=== PATIENT | female | born 1950 | race American Indian/Alaskan Native ===

== ENCOUNTER 2017-10-09 15:22 | Outpatient (REF) | payer BC, MEDICARE, SELFPAY ==
[2017-10-09 19:34] LABS: Cholesterol 170 mg/dL (50-200); HDL Cholesterol 53 mg/dL (40-60); LDL CHOLESTEROL 96 mg/dL (<100); TSH 0.85 uIU/mL (0.358-3.74); Triglyceride 102 mg/dL (30-150); Vitamin B12 796 pg/mL (193-986)
== END 2017-10-09 15:23 ==
LOC: NCHCN 15:22
PROVIDERS: PCP Internal Medicine; Visit Provider Nurse Practitioner Family
DX: E03.9 Hypothyroidism, unspecified (principal); G31.84 Mild cognitive impairment of uncertain or unknown etiology
CPT/HCPCS: 80061; 83721; 82607; 84443

== ENCOUNTER 2018-11-07 18:11 | Outpatient (REF) | payer BC, MEDICARE, SELFPAY ==
[2018-11-07 20:34] LABS: HCT 40.6 % (36.0-46.0); Mean Corpuscular Hemoglobin 29.3 pg (27.0-33.0); Mean Corpuscular Volume 91.6 fL (80-95); Mean Platelet Volume 11.3 fL (8.0-11.0); Platelet Count 202 x1000/uL (130-400); RBC 4.43 m/cumm (4.00-5.20); RBC Distribution Width 14.4 % (11.7-14.6); White Blood Cell Count 5.91 k/cumm (4.4-10.8)
[2018-11-07 21:20] LABS: Anion Gap 9.8 mmol/L (3-11); BUN 18 mg/dL (7-18); CO2 25.2 mmol/L (21.0-32.0); CREATININE 0.75 mg/dL (0.55-1.02); Calcium 8.7 mg/dL (8.5-10.1); Chloride 108 mmol/L (98-107); Glucose 83 mg/dL (70-100); Potassium 3.6 mmol/L (3.5-5.1); Sodium 143 mmol/L (136-145); TSH 1.12 uIU/mL (0.36-3.74)
== END 2018-11-07 18:31 ==
LOC: NCHCN 18:11
PROVIDERS: PCP Internal Medicine; Visit Provider Internal Medicine
DX: Z00.00 Encounter for general adult medical examination without abnormal findings (principal); F32.9 Major depressive disorder, single episode, unspecified; M79.2 Neuralgia and neuritis, unspecified; M12.812 Other specific arthropathies, not elsewhere classified, left shoulder; R53.83 Other fatigue
CPT/HCPCS: 80048; 85027; 84443

== ENCOUNTER 2020-02-21 21:42 | Outpatient (REF) | payer BC, MEDICARE, SELFPAY ==
[2020-02-21 19:16] LABS: HCT 40.3 % (36.0-46.0); HGB 12.2 g/dL (11.2-15.7); MCH 29.6 pg (27.0-33.0); MCHC 30.3 % (32.0-36.0); MCV 97.8 fL (80-95); MPV 11.6 fL (8.0-11.0); Platelet Count 192 10^3/uL (130-400); RBC 4.12 10^6/uL (3.93-5.22); RDW-SD 50.8 fL; WBC 4.96 10^3/uL (4.4-10.8)
[2020-02-21 19:46] LABS: ALT 31 U/L (14-59); AST 20 U/L (15-37); Albumin 3.6 g/dL (3.4-5.0); Alkaline Phosphatase 51 U/L (46-116); Anion Gap 6.8 mmol/L (3-11); BUN 19 mg/dL (7-18); Bilirubin, Total 0.3 mg/dL (0.2-1.0); CO2 28.2 mmol/L (21.0-32.0); CREATININE 0.79 mg/dL (0.55-1.02); Calcium 8.6 mg/dL (8.5-10.1); Chloride 108 mmol/L (98-107); Glucose 77 mg/dL (74-106); LDL CHOLESTEROL 104 mg/dL (<100); Sodium 143 mmol/L (136-145); TSH 1.08 uIU/mL (0.36-3.74); Total Protein 6.5 g/dL (6.4-8.2)
== END 2020-02-21 22:02 ==
LOC: NCHCN 21:42
PROVIDERS: PCP Internal Medicine; Visit Provider Internal Medicine
DX: R10.31 Right lower quadrant pain (principal); E03.9 Hypothyroidism, unspecified; F32.9 Major depressive disorder, single episode, unspecified; M81.0 Age-related osteoporosis without current pathological fracture
CPT/HCPCS: 80053; 83721; 85027; 84443

== ENCOUNTER 2021-10-12 20:42 | Outpatient (REF) | payer OTHER, SELFPAY ==
[2021-10-12 18:55] LABS: HCT 41.9 % (36.0-46.0); HGB 13.1 g/dL (11.2-15.7); MCH 29.7 pg (27.0-33.0); MCHC 31.3 % (32.0-36.0); MCV 95 fL (80-95); MPV 11.3 fL (8.0-11.0); Platelet Count 217 10^3/uL (130-400); RBC 4.41 10^6/uL (3.93-5.22); RDW 13.7 % (11.7-14.6); RDW-SD 48.3 fL; WBC 6.36 10^3/uL (4.4-10.8)
[2021-10-12 19:10] LABS: Iron 73 ug/dL (50-170); Total Iron Binding Capacity 381 ug/dL (250-450); Transferrin Sat 19 % (15-50)
[2021-10-12 19:23] LABS: Ferritin 21 ng/mL (8-252)
== END 2021-10-12 20:43 | disposition home or self-care (01) ==
LOC: NCHCN 20:42
PROVIDERS: PCP Internal Medicine; Visit Provider Internal Medicine
DX: K62.5 Hemorrhage of anus and rectum (principal)
CPT/HCPCS: 85027; 82728; 83540; 83550

== ENCOUNTER 2022-05-17 18:46 | Outpatient (REF) | payer MEDICARE, SELFPAY ==
[2022-05-17 19:36] LABS: TSH (W/Ref FT4) 1.63 uIU/mL (0.36-3.74)
== END 2022-05-17 18:47 | disposition home or self-care (01) ==
LOC: NCHCN 18:46
PROVIDERS: PCP Internal Medicine; Visit Provider Nurse Practitioner Family
DX: E03.9 Hypothyroidism, unspecified (principal)
CPT/HCPCS: 84443

== ENCOUNTER 2022-10-26 18:26 | Outpatient (REF) | payer MEDICARE, SELFPAY ==
[2022-10-26 21:32] LABS: Abs Immature Grans 0.01 10^3/uL (0.0-0.06); Absolute Basophil Count 0.04 10^3/uL (0.0-0.2); Absolute Eosinophil Count 0.19 10^3/uL (0.0-0.7); Absolute Lymphocyte Count 2.54 10^3/uL (1.2-3.4); Absolute Monocyte Count 0.49 10^3/uL (0.1-0.8); Absolute Neutrophil Count 2.08 10^3/uL (1.2-6.7); Basophils % 0.7; Eosinophils % 3.6; HCT 40.3 % (36.0-46.0); HGB 12.8 g/dL (11.2-15.7); Immature Grans % 0.2; Lymphocytes % 47.5; MCH 29.6 pg (27.0-33.0); MCHC 31.8 % (32.0-36.0); MCV 93 fL (80-95); MPV 11.1 fL (8.0-11.0); Monocytes % 9.2; Neutrophils % 38.8; Platelet Count 206 10^3/uL (130-400); RBC 4.32 10^6/uL (3.93-5.22); RDW 14.1 % (11.7-14.6); RDW-SD 48.8 fL; WBC 5.35 10^3/uL (4.4-10.8)
[2022-10-26 22:00] LABS: Anion Gap 8.6 mmol/L (3-11); BUN 19 mg/dL (7-18); CO2 25.4 mmol/L (21.0-32.0); CREATININE 0.8 mg/dL (0.55-1.02); Calcium 8.9 mg/dL (8.5-10.1); Chloride 105 mmol/L (98-107); Estimated GFR 79.22 (mL/min/1.73m2); Glucose 89 mg/dL (74-106); Potassium 3.8 mmol/L (3.5-5.1); Sodium 139 mmol/L (136-145)
== END 2022-10-26 18:27 | disposition home or self-care (01) ==
LOC: NCHCN 18:26
PROVIDERS: PCP Internal Medicine; Visit Provider Internal Medicine
DX: R13.10 Dysphagia, unspecified (principal); Z79.899 Other long term (current) drug therapy; E03.9 Hypothyroidism, unspecified
CPT/HCPCS: 80048; 85025

== ENCOUNTER 2023-04-24 18:41 | Outpatient (REF) | payer MEDICARE, SELFPAY ==
[2023-04-24 19:34] LABS: Abs Immature Grans 0.01 10^3/uL (0.0-0.06); Absolute Basophil Count 0.05 10^3/uL (0.0-0.2); Absolute Eosinophil Count 0.11 10^3/uL (0.0-0.7); Absolute Lymphocyte Count 2.99 10^3/uL (1.2-3.4); Absolute Monocyte Count 0.55 10^3/uL (0.1-0.8); Absolute Neutrophil Count 3.13 10^3/uL (1.2-6.7); Basophils % 0.7; Eosinophils % 1.6; HCT 42.9 % (36.0-46.0); HGB 13.8 g/dL (11.2-15.7); Immature Grans % 0.1; Lymphocytes % 43.7; MCH 29.8 pg (27.0-33.0); MCHC 32.2 % (32.0-36.0); MCV 93 fL (80-95); MPV 11.2 fL (8.0-11.0); Neutrophils % 45.9; Platelet Count 220 10^3/uL (130-400); RBC 4.63 10^6/uL (3.93-5.22); RDW-SD 47.6 fL; WBC 6.84 10^3/uL (4.4-10.8)
[2023-04-24 19:54] LABS: Anion Gap 9.8 mmol/L (3-11); BUN 26 mg/dL (7-18); CO2 27.2 mmol/L (21.0-32.0); CREATININE 0.7 mg/dL (0.55-1.02); Calcium 9.6 mg/dL (8.5-10.1); Chloride 105 mmol/L (98-107); Estimated GFR 92.98 (mL/min/1.73m2); Glucose 73 mg/dL (74-106); Potassium 3.9 mmol/L (3.5-5.1); Sodium 142 mmol/L (136-145)
[2023-04-24 20:17] LABS: D-Dimer 1715 ng/mlFEU (<500)
[2023-04-26 08:14] LABS: IgE <2 IU/mL (<158)
== END 2023-04-24 18:42 | disposition home or self-care (01) ==
LOC: NCHCN 18:41
PROVIDERS: PCP Internal Medicine; Visit Provider Internal Medicine
DX: R60.0 Localized edema (principal); J45.901 Unspecified asthma with (acute) exacerbation
CPT/HCPCS: 80048; 82785; 85025; 85379

== ENCOUNTER 2023-06-08 16:40 | Outpatient (REF) | payer MEDICARE, SELFPAY ==
[2023-06-08 18:35] LABS: HCT 41.4 % (36.0-46.0); HGB 13.1 g/dL (11.2-15.7); MCH 29.8 pg (27.0-33.0); MCHC 31.6 % (32.0-36.0); MCV 94 fL (80-95); MPV 10.9 fL (8.0-11.0); Platelet Count 217 10^3/uL (130-400); RBC 4.39 10^6/uL (3.93-5.22); RDW 13.8 % (11.7-14.6); RDW-SD 47.9 fL; WBC 6.79 10^3/uL (4.4-10.8)
[2023-06-08 19:01] LABS: ALT 34 U/L (14-59); AST 22 U/L (15-37); Albumin 3.5 g/dL (3.4-5.0); Alkaline Phosphatase 65 U/L (46-116); Bilirubin, Direct 0.1 mg/dL (0.0-0.2); Bilirubin, Total 0.3 mg/dL (0.2-1.0); GGT 17 U/L (5-55); Total Protein 6.8 g/dL (6.4-8.2)
[2023-06-08 19:04] LABS: C-Reactive Protein < 0.50 mg/dL (<or=0.5)
== END 2023-06-08 16:41 | disposition home or self-care (01) ==
LOC: NCHCN 16:40
PROVIDERS: PCP Internal Medicine; Visit Provider Internal Medicine
DX: R10.9 Unspecified abdominal pain (principal)
CPT/HCPCS: 80076; 85027; 82977; 86140

== ENCOUNTER 2024-05-17 16:10 | Outpatient (REF) | payer MEDICARE, SELFPAY ==
[2024-05-17 19:08] LABS: ESR 26 mm/hr (0-30)
[2024-05-17 19:09] LABS: HCT 42.1 % (36.0-46.0); HGB 13.3 g/dL (11.2-15.7); MCH 29.4 pg (27.0-33.0); MCHC 31.6 % (32.0-36.0); MCV 93 fL (80-95); Platelet Count 229 10^3/uL (130-400); RBC 4.52 10^6/uL (3.93-5.22); RDW 14.3 % (11.7-14.6); RDW-SD 48.7 fL
[2024-05-17 19:33] LABS: Anion Gap 6.1 mmol/L (3-11); BUN 25 mg/dL (7-18); CO2 28.9 mmol/L (21.0-32.0); CREATININE 0.8 mg/dL (0.55-1.02); Calcium 9.5 mg/dL (8.5-10.1); Calculated LDL 112 mg/dL (<100); Chloride 109 mmol/L (98-107); Cholesterol 191 mg/dL (<200); Estimated GFR 78.72 (mL/min/1.73m2); Glucose 87 mg/dL (74-106); HDL Cholesterol 53 mg/dL (>or=50); Potassium 4.5 mmol/L (3.5-5.1); Sodium 144 mmol/L (136-145); TSH 1.17 uIU/mL (0.36-3.74); Triglyceride 134 mg/dL (<150)
[2024-05-17 19:48] LABS: C-Reactive Protein < 0.50 mg/dL (<or=0.5)
== END 2024-05-17 16:11 | disposition home or self-care (01) ==
LOC: NCHCN 16:10
PROVIDERS: PCP Internal Medicine; Visit Provider Internal Medicine
DX: E03.9 Hypothyroidism, unspecified (principal); R51.9 Headache, unspecified
CPT/HCPCS: 80048; 80061; 85027; 85652; 84443; 86140